=== PATIENT | female | born 1980 | race Two or more races ===

== ENCOUNTER → 2016-07-05 | Outpatient (REF) | payer BC ==
[~2016-07-05] MED LIST: ALEV220T26 PO; PEPT262T2 PO; PROTPAK PO
== END ==
LOC: M LAB REF 16:30
PROVIDERS: ATTEND Physician Assistant
DX: N92.6 Irregular menstruation, unspecified (principal)

== ENCOUNTER → 2016-07-06 | Outpatient (CLI) | payer BC ==
--- NOTE | 2016-07-07 03:29 | REP ---
Clinical: Irregular menstrual cycles . Technique: Transabdominal pelvic ultrasound followed by transvaginal examination for better evaluation of the endometrium and adnexa with color Doppler evaluation of the ovaries. Findings: Bladder is unremarkable and measures 7.4 x 4.7 x 3.0 cm . Heterogeneous anteverted uterus measures 5.1 x 4.9 x 5.8 cm. The endometrial complex measures 14.2 mm thickness. No discrete uterine or endometrial abnormalities are appreciated. Incidental note of small Nabothian cysts. Bilateral ovaries are normal vascularity without evidence for torsion. Right ovary measures 7.4 x 3.4 x 5.1 cm and includes 5.2 cm simple cyst ; R I = 0.44 . Left ovary measures 3.1 x 1.8 x 1.8 cm ; R I = 0.46 . No pelvic fluid or adnexal mass lesion . Impression: 1. 5.2 cm simple right ovarian cyst. Consider follow-up examination in 4-6 weeks to evaluate for resolution. Signed by Jairo Costello MD 07/07/2016 03:21 A
== END ==
LOC: M RAD 11:59
PROVIDERS: ATTEND Physician Assistant
DX: R10.32 Left lower quadrant pain (principal); N92.6 Irregular menstruation, unspecified; N83.201 Unspecified ovarian cyst, right side

== ENCOUNTER → 2016-07-26 | Outpatient (CLI) | payer BC ==
[2016-07-26 17:49] LABS: CONTROL LINE HCG INT CTR LINE PRESENT
[2016-07-26 19:03] LABS: LUTEINIZING HORMONE 2.6 mIU/mL
[2016-07-26 19:04] LABS: FOLLICLE STIMULATING HORMONE 8.5 mIU/mL
[2016-07-26 19:06] LABS: T UPTAKE 31 % (30-39); THYROXINE (T4) 7.9 UG/DL (4.5-12.0)
== END ==
LOC: M SMT 13:34
PROVIDERS: ATTEND Advanced Practice Midwife
DX: R30.0 Dysuria (principal); N92.6 Irregular menstruation, unspecified

== ENCOUNTER → 2016-09-15 | Outpatient (REF) | payer BC ==
[~2016-09-15] MED LIST changes: +IBUP-1022 PO; +TRAM50TA2 PO
[2016-09-15 17:04] LABS: CONTROL LINE HCG INT CTR LINE PRESENT
[2016-09-15 17:12] LABS: PERCENT SATURATION 25.5 % (13.2-37.4); TOTAL IRON BINDING CAPACITY 384 UG/DL (250-450)
== END ==
LOC: M LAB REF 16:25
PROVIDERS: ATTEND Internal Medicine
DX: N92.6 Irregular menstruation, unspecified (principal)

== ENCOUNTER → 2016-09-23 | Outpatient (REF) | payer BC | LOC: M LAB REF 17:24 | PROVIDERS: ATTEND Advanced Practice Midwife | DX: N76.0 Acute vaginitis (principal) ==

== ENCOUNTER → 2016-09-26 | Outpatient (CLI) | payer BC ==
[2016-09-26 19:07] LABS: CONTROL LINE HCG INT CTR LINE PRESENT
[2016-09-26 19:14] LABS: BASO % 0.9 % (0.0-1.0); EOS # 0.2 K/mm3 (0.0-0.50); EOS % 2.9 % (0.0-3.0); LARGE UNSTAINED CELL # 0.1 K/mm3 (0.0-0.4); LARGE UNSTAINED CELL % 2.4 % (0.0-4.0); LYMPH # 1.7 K/mm3 (1.5-4.5); LYMPH % 27.2 % (24.0-44.0); MEAN CORPUSCULAR HEMOGLOBIN 29.6 pg (27.0-33.0); MEAN CORPUSCULAR HGB CONC 32.1 g/dl (32.0-36.5); MEAN CORPUSCULAR VOLUME 92.2 fl (80.0-96.0); MONO # 0.4 K/mm3 (0.0-0.8); MONO % 6.4 % (0.0-5.0); NEUTROPHILS # 3.4 K/mm3 (1.8-7.7); NEUTROPHILS % 60.2 % (36.0-66.0); PLATELET COUNT, AUTOMATED 243 k/mm3 (150-450); RED CELL DISTRIBUTION WIDTH 12.9 % (11.5-14.5); WHITE BLOOD COUNT 5.6 K/mm3 (4.0-10.0)
--- NOTE | 2016-09-27 00:44 | REP ---
Clinical: Abnormal uterine bleeding . Technique: Transabdominal pelvic ultrasound followed by transvaginal examination for better evaluation of the endometrium and adnexa with color Doppler evaluation of the ovaries. Findings: Bladder is unremarkable and measures 9.1 x 5.7 x 9.3 cm . Heterogeneous anteverted uterus measures 8.5 x 4.2 x 5.8 cm . The endometrial complex is heterogeneous and measures 16 mm thickness. No discrete uterine or endometrial abnormalities are appreciated. Incidental Nabothian cysts in the lower uterine segment. Bilateral ovaries are normal in vascularity without evidence for torsion. Right ovary measures 9.3 x 5.8 x 6.2 cm and includes 7.8 x 4.7 x 5.6 cm septated cyst ; R I = 0.60 . Left ovary measures 5.1 x 3.7 x 4.1 cm and includes 3.0 x 4.0 x 2.4 cm simple cyst ; R I = 0.51 . No pelvic fluid or adnexal mass lesion . Impression: 1. Heterogeneous uterus with thickened heterogeneous endometrial complex, but no discrete abnormality or lesion is appreciated. 2. Complex septated 7.8 cm right ovarian cyst and 4.0 cm simple left ovarian cyst warrant followup in 4-6 weeks to evaluate for resolution. Signed by Jairo Costello MD 09/27/2016 12:35 A
== END ==
LOC: M SMT 13:09
PROVIDERS: ATTEND Advanced Practice Midwife
DX: N92.6 Irregular menstruation, unspecified (principal); N83.201 Unspecified ovarian cyst, right side; N83.202 Unspecified ovarian cyst, left side

== ENCOUNTER → 2016-09-28 | Outpatient (CLI) | payer BC ==
[2016-09-28 13:40] LABS: HCG, SERUM QUANTITATIVE < 1.0 MIU/ML
[2016-09-30 10:06] LABS: CARCINOEMBRYONIC ANTIGEN 0.5 NG/ML (<2.5)
[2016-09-30 10:33] LABS: CA 125 11.2 U/ML (<30.2)
== END ==
LOC: M SMT 08:21
PROVIDERS: ATTEND Obstetrics & Gynecology
DX: N83.201 Unspecified ovarian cyst, right side (principal); N83.202 Unspecified ovarian cyst, left side

== ENCOUNTER 2016-10-13 18:13 | Emergency (ER) | payer BC ==
[~2016-10-13] VITALS: Ht 154.9 cm; Wt 55.9 kg
[~2016-10-13 18:13] MED LIST changes: -IBUP-1022 PO; -TRAM50TA2 PO
[2016-10-13 19:12] LABS: MEAN CORPUSCULAR HEMOGLOBIN 29.1 pg (27.0-33.0); MEAN CORPUSCULAR HGB CONC 32.1 g/dl (32.0-36.5); MEAN CORPUSCULAR VOLUME 90.5 fl (80.0-96.0); RED CELL DISTRIBUTION WIDTH 12.5 % (11.5-14.5); WHITE BLOOD COUNT 6.6 K/mm3 (4.0-10.0)
[2016-10-13 19:30] LABS: CONTROL LINE HCG INT CTR LINE PRESENT
[2016-10-13 20:01] VITALS: BP 168/79
[2016-10-28] MEDS ORDERED: ALEV220T26 PO (07:39)
== END 2016-10-13 20:02 | disposition home or self-care (01) ==
LOC: M ED 18:13
DX: N92.1 Excessive and frequent menstruation with irregular cycle (principal); R10.2 Pelvic and perineal pain; Z88.6 Allergy status to analgesic agent

== ENCOUNTER → 2016-11-04 | Outpatient (CLI) | payer BC ==
[~2016-11-04] MED LIST changes: +IBUP-1022 PO; +TRAM50TA2 PO
--- NOTE | 2016-11-04 14:31 | REP ---
Pelvic ultrasound including transabdominal, endovaginal and Doppler ultrasound assessment: Comparison is 09/26/2016. The bladder is adequately distended. The uterus is anteverted and normal size measuring 8.2 x 4.3 x 5.7. The endometrium is not thickened measuring 12 mm. There is a heterogeneous echotexture. There is a focal hypoechoic area measuring 1.1 by 0.9 cm of uncertain significance, clot versus endometrial polyp. Right ovary: There is a 7.6 x 5.5 x 5.1 cm complex right ovarian cyst with a septation. This is not significantly changed in size from the prior study. Including this cyst the right ovary is normal size measuring 8.2 x 6.3 x 5.7 cm. There is vascular flow in the right ovary with the Doppler resistive index of the intraparenchymal arteries measuring 0.59. Left ovary: There is a left ovarian 4.0 x 3.4 1.8 cm simple cyst. This has not significantly changed in size. Including this cyst in the left ovary is enlarged measuring 5.4 x 2.7 x 3.9 cm. The left ovary is best visualized on transabdominal imaging and Doppler waveforms could not be performed. However, there is a left ovarian vascular flow with color Doppler assessment. Impression: The patient's large complex right ovarian cyst has not significantly changed in size. The left ovarian simple cyst has not significantly changed in size. On the study today there is a focal hypoechoic zone in the endometrium of uncertain significance, clot versus polyp. Signed by William Gutiérrez MD 11/04/2016 02:23 P
== END ==
LOC: M SMT 12:58
PROVIDERS: ATTEND Obstetrics & Gynecology
DX: N83.202 Unspecified ovarian cyst, left side (principal)

== ENCOUNTER 2016-11-11 08:00 | Day surgery (SDC) | payer BC ==
[~2016-11-11] VITALS: Ht 154.9 cm; Wt 57.2 kg
[~2016-11-11 08:00] MED LIST changes: -IBUP-1022 PO; -TRAM50TA2 PO
[2016-11-11] MEDS ORDERED: LR 1,000 ML IV ONE (08:30)
[2016-11-11] MEDS ORDERED: LR 1,000 ML IV SCH ×4 (08:30→16:00)
[2016-11-11 08:41] LABS: MEAN CORPUSCULAR HEMOGLOBIN 26.3 pg (27.0-33.0); MEAN CORPUSCULAR HGB CONC 31.2 g/dl (32.0-36.5); RED CELL DISTRIBUTION WIDTH 13.4 % (11.5-14.5); WHITE BLOOD COUNT 6.4 K/mm3 (4.0-10.0)
[2016-11-11 08:42] LABS: CONTROL LINE HCG INT CTR LINE PRESENT
[2016-11-11] MEDS ORDERED: ALBUTEROL SULFATE 2.5 MG/0.5 ML INH NEB SOLN As Ordered ONE (09:01)
[2016-11-11] MEDS ORDERED: ALBUTEROL SULFATE 2.5 MG/0.5 ML INH NEB SOLN INH ONE (09:15)
[2016-11-11] MEDS ORDERED: MIDAZOLAM INJ 2 MG/2 ML VIAL (J2250) As Ordered ONE (10:19)
[2016-11-11] MEDS ORDERED: fentaNYL 100 MCG/2 ML INJECTION (J3010) As Ordered ONE ×2 (10:19→11:55)
[2016-11-11] MEDS ORDERED: BUPIVACAINE HCL 0.25% 10 ML VIAL As Ordered ONE ×2 (10:51→12:10)
[2016-11-11] MEDS ORDERED: SILVER NITRATE APPLICATOR As Ordered ONE (10:51)
[2016-11-11] MEDS ORDERED: dexameTHASONE 4 MG/ML 1ML VIAL (J1100) As Ordered ONE (12:29)
[2016-11-11] MEDS ORDERED: KETOROLAC 60 MG/2 ML VIAL (J1885) As Ordered ONE (12:29)
[2016-11-11] MEDS ORDERED: PROPOFOL 200 MG/20 ML VIAL As Ordered ONE (12:29)
[2016-11-11] MEDS ORDERED: ROCURONIUM BROMIDE 50 MG/5 ML VIAL/SYRINGE As Ordered ONE (12:29)
[2016-11-11] MEDS ORDERED: ONDANSETRON 4MG/2ML VIAL (J2405) As Ordered ONE (12:29)
[2016-11-11] MEDS ORDERED: LIDOCAINE 2% INJ 100 MG/5 ML SDV (FOR ANES.) As Ordered ONE (12:29)
[2016-11-11] MEDS ORDERED: HYDROmorphone HCL 2 MG/ML 1ML VIAL (J1170) As Ordered ONE (12:58)
[2016-11-11] MEDS ORDERED: GLYCOPYRROLATE INJ 0.2 MG/ML 2 ML VIAL As Ordered ONE (14:00)
[2016-11-11] MEDS ORDERED: NEOSTIGMINE 1MG/ML 5 ML SYRINGE (J2710) As Ordered ONE (14:00)
[2016-11-11] MEDS ORDERED: ONDANSETRON 4MG/2ML VIAL (J2405) IV PRN ×2 (14:45→16:00)
[2016-11-11] MEDS ORDERED: HYDROmorphone HCL 1 MG/ML SYRINGE (J1170) IV PRN ×2 (14:45→16:00)
[2016-11-11] MEDS ORDERED: fentaNYL 100 MCG/2 ML INJECTION (J3010) IV PRN ×2 (14:45→16:00)
[2016-11-11] MEDS ORDERED: METOCLOPRAMIDE INJ 10MG/2ML VIAL (J2765) As Ordered ONE (15:32)
[2016-11-11] MEDS ORDERED: METOCLOPRAMIDE INJ 10MG/2ML VIAL (J2765) IV PRN (16:00)
[2016-11-11] MEDS ORDERED: IBUP-1022 PO (16:58)
[2016-11-11] MEDS ORDERED: TRAM50TA2 PO (17:00)
[2016-11-11 18:45] VITALS: BP 150/80
--- NOTE | 2016-11-13 10:30 | RO ---
DATE OF PROCEDURE: 11/11/2016 PREOPERATIVE DIAGNOSES: 1. Abnormal uterine bleeding. 2. Chronic pelvic pain. 3. Right and left adnexal masses. POSTOPERATIVE DIAGNOSES: 1. Abnormal uterine bleeding. 2. Chronic pelvic pain. 3. Right and left adnexal masses. 4. Suspected endometrioma on the left side, pathology on the right side to be determined by final pathology. PROCEDURE PERFORMED: 1. Operative hysteroscopy/MyoSure. 2. Laparoscopic right salpingo-oophorectomy. 3. Laparoscopic left ovarian cystectomy. 4. Laparoscopic lysis of adhesions. SURGEON: Dr. Ru Corona. GIS ADMINISTRATOR: Dr. Esperanza Ocasio. ANESTHESIA: General endotracheal. SPECIMENS TO PATHOLOGY: 1. Morcellated endometrial mass. 2. Endometrial curettings. 3. Right ovary and fallopian tube with right adnexal/ovarian mass. 4. Left-sided ovarian cystic wall grossly consistent with endometrioma. ESTIMATED BLOOD LOSS: 15 mL. Fluids replaced 3 liters. DRAINS: Neves catheter 300 mL of urine output. COMPLICATIONS: None. PREOPERATIVE ANTIBIOTICS: None indicated. INTRAOPERATIVE FINDINGS: 7-8 cm right ovarian mass with complex cystic mass c/w preoperative ultrasonography. Laparoscopically, there is no discernible normal ovarian tissue. This mass was freely mobile on the IP ligament. No surrounding adhesive disease was noted. On the left side, the left ovary and fallopian tube were densely adherent to both the uterus and to the surrounding colon. Around the area of the fimbria and fallopian tube/communication with ovary, there was an apparent endometrioma. Given the dense adhesive nature of this cyst, it was incidentally ruptured intraoperatively and the fluid express was consistent with an endometrioma (thick, dark brown) HYSTEROSCOPIC FINDINGS: An intrauterine posterior polypoid mass which was morcellated with the MyoSure device. INDICATION: 36-year-old with longstanding history of chronic pelvic pain, recent sonographic findings suggestive of bilateral adnexal masses right greater than left. The preoperative plan was to remove the large right adnexal mass and if right salpingo-oophorectomy was deemed necessary, then on the left side, in an effort to retain ovarian function, only a cystectomy/drainage of the cyst was going to be performed. This is exactly what was done. See the narrative. The patient also had abnormal uterine bleeding. Preoperatively the decision was made to evaluate the endometrium for any endometrial intracavitary mass which was suggested by the ultrasonography preoperatively. PROCEDURE: The patient was counseled and consented on the risks, benefits, indications and alternatives of the procedure. Informed consent was obtained. She was taken to the operating room with an IV running and placed on the operating table in dorsal supine position. General anesthesia was administered and the airway secured without any difficulty. She was then placed in low lithotomy position. She was prepared and draped in normal sterile fashion. A time-out was performed per protocol. Attention was first turned to the vagina. A Neves catheter was placed under sterile conditions. A sterile speculum was placed with good visualization of the cervix. The anterior lip of the cervix was grasped with a single-tooth tenaculum and downward traction was applied. The cervix was then sequentially dilated with a Yousif dilator up to #16. The MyoSure hysteroscope was placed transcervically into the intrauterine cavity and the polypoid posterior intracavitary mass was identified. The MyoSure device was then placed transcervically into the intrauterine cavity and it was noted to be abutting the polypoid mass and the MyoSure was activated. The entire polypoid mass was removed and after this mass was removed, the MyoSure device was removed. The hysteroscope was removed and sharp curettage was performed throughout the entire intrauterine cavity. Minimal bleeding from the os was noted. The tissue was sent to pathology for permanent section. The ZUMI uterine manipulator was then placed in typical fashion. The single-tooth tenaculum was removed. The sterile speculum was removed and a glove switch was performed. Attention was turned to the abdomen. A stab incision in the umbilicus was placed. The Veress needle was placed through the umbilicus. Intraperitoneal placement was confirmed with ease of flow of normal saline, negative return on aspiration and a positive drop test. Opening pressure was 7 mmHg. The abdomen was insufflated with 2 liters of gas. The Veress needle was removed. 11 mm supraumbilical midline horizontal skin incision was made with the 11 blade and through this incision, an 11 mm XL laparoscopic trocar was placed into the intraperitoneal cavity. Intraperitoneal placement was confirmed. The patient was placed in Trendelenburg. Two additional lower abdominal port sites were placed via 5 mm incisions in the lower abdomen. Each incision approximately 2 cm superior and 2 cm medial to the ASIS. The 5 mm XL laparoscopic trocars were placed through these incisions without any difficulty and under direct laparoscopic visualization. Attention was first turned to the right adnexal mass. The right adnexal mass was mobilized on the IP ligament. The IP ligament was noted to be well away from the right ureter. Using the 5 mm LigaSure device, the right IP ligament was sequentially clamped, coagulated and transected and then the underlying mesosalpinx and broad ligament were sequentially clamped, coagulated and transected. The utero-ovarian ligament was then sequentially clamped, coagulated and transected with the LigaSure device until the entire right adnexal mass was amputated. This was placed in the anterior cul-de-sac. Attention was then turned to the left sided mass. Given the adherence of this ovary and mass to both the uterus and the surrounding bowel, the decision was made to only proceed with initially drainage. A laparoscopic needle was placed into the cystic mass and punctured into the cystic mass and then brown chocolate fluid was drained. However, during this time, once the laparoscopic needle was removed, it was noted that the cystic wall was entirely visible. The [place] graspers were used to peel the endometrioma wall off of what remained of normal ovarian tissue. Once significant majority portion of the cystic wall was mobilized off of the ovary, the LigaSure device was used to sequentially clamp, coagulate and transect the underside of the cystic wall duct amputating the cystic wall. The cystic wall was sent to pathology for permanent section. Minimal bleeding from the cystectomy site was noted. Normal ovarian tissue was still noted and franchise sales representative images were taken and placed in the chart. Normal ovary was noted to be wedged between adhesive disease between the uterus and the bowel/sigmoid colon. Given the dense adhesions, the decision was made to not proceed with any effort at mobilizing this ovary especially since the patient desired to retain her premenopausal status. The cystic wall was removed through the 5 mm cannula and sent to pathology for permanent section. However, the right adnexal mass was too large to remove through any of the ports. Therefore the Pratik extractor system was used. This was placed through the supraumbilical incision. The mass was placed into the Pratik extractor system and brought out of the abdomen in typical fashion. The mass was noted to be removed in its entirety. The cannula was then replaced. The abdomen and pelvis was inspected and noted be completely hemostatic. To ensure hemostasis, Kayla was placed over the surgical sites concentrating on the cystectomy site which was an area of a small amount of oozing/capillary bleeding. Once the Kayla was placed, excellent hemostasis was noted. The right IP ligament and right broad ligament were noted to be completely hemostatic. At this point, decision was made to conclude the procedure. The 11 mm cannula was removed. The Jorge-Roselyn technique was used to close the fascia at the 11 mm incision with #0 Vicryl. Once this was done, the gas was released from the abdomen. The trocars were removed from the abdomen. The skin incisions were closed with #4-0 Monocryl in subcuticular fashion and reinforced with Dermabond. The sponge, lap, needle, instrument counts were correct. Attention was then turned to the vagina. The ZUMI uterine manipulator was removed. The single-tooth tenaculum had already been removed. The tenaculum sites were noted to be hemostatic upon speculum inspection. The Neves catheter was room. All instruments were removed from the vagina. Sponge, lap, needle, instrument counts were correct. The patient tolerated the entire procedure well. She was transferred to the postanesthesia care unit in good and stable condition. LINDSEY
== END 2016-11-11 18:45 | disposition home or self-care (01) ==
LOC: M SDC 08:00
PROVIDERS: ATTEND Obstetrics & Gynecology
DX: N84.0 Polyp of corpus uteri (principal); N83.292 Other ovarian cyst, left side; N83.01 Follicular cyst of right ovary; N83.8 Other noninflammatory disorders of ovary, fallopian tube and broad ligament; N92.5 Other specified irregular menstruation; N73.6 Female pelvic peritoneal adhesions (postinfective); R10.2 Pelvic and perineal pain; F41.9 Anxiety disorder, unspecified; F32.9 Major depressive disorder, single episode, unspecified; M54.5 Low back pain; M54.2 Cervicalgia
CPT/HCPCS: 36415; 49322; 58558; 58661; 84703; 85027; 86850; 86900; 86901; 88304; 88305; 88307; A6024; J1100; J1170; J1885; J2250; J2405; J2710; J2765; J3010

== ENCOUNTER → 2017-04-10 | Outpatient (REF) | payer BC | LOC: M LAB REF 08:48 | DX: I10 Essential (primary) hypertension (principal) ==

== ENCOUNTER → 2017-07-07 | Outpatient (REF) | payer BC ==
[2017-07-07 13:18] LABS: IRON (FE) 62 UG/DL (50-170); PERCENT SATURATION 16.3 % (13.2-45.0); TOTAL IRON BINDING CAPACITY 380 UG/DL (250-450)
== END ==
LOC: M LAB REF 12:09
DX: K62.5 Hemorrhage of anus and rectum (principal)
CPT/HCPCS: 83550

== ENCOUNTER → 2017-11-24 | Outpatient (REF) | payer BC | LOC: M LAB REF 17:09 | DX: R30.0 Dysuria (principal) | CPT/HCPCS: 87086 ==

== ENCOUNTER → 2018-03-09 | Outpatient (REF) | payer BC ==
[~2018-03-09] MED LIST changes: +IBUP-1022 PO; +TRAM50TA2 PO
== END ==
LOC: M LAB REF 16:47
PROVIDERS: ATTEND Advanced Practice Midwife
DX: R30.0 Dysuria (principal)

== ENCOUNTER → 2018-03-15 | Outpatient (CLI) | payer BC ==
--- NOTE | 2018-03-15 17:19 | REP ---
PELVIC ULTRASOUND: Real-time sonographic evaluation of the pelvis performed utilizing transabdominal and endovaginal technique. Comparison made with prior study of 11/04/2016. The bladder measures 3.8 x 2.6 x 4.2 cm. Uterus measures 7.8 x 4.9 x 5.5 cm. Endometrial thickness is 12 mm. The right ovary could not be visualized due to overlying bowel gas. Left ovary is enlarged measuring 6.4 x 3.5 x 5.0 cm. Visualization is limited due to adjacent bowel gas. However, there is a complex septated cyst present of the left ovary measuring 4.3 x 2.9 x 4.0 cm. There appears to be a mural nodule measuring 1.6 x 1.4 x 1.5 cm within the complex cyst. There is no torsion bilaterally duplex Doppler evaluation. Small nabothian cysts are seen in the region of the cervix. IMPRESSION: Right ovary could not be visualized. Left ovary demonstrates a complex septated cyst with a maximum diameter of 4.3 cm. There is also an internal mural nodule within this complex cyst measuring 1.6 cm maximally. Previously on the examination of 11/04/2016, there was a simple appearing cyst of the left ovary with a maximum diameter of 4 cm. Recommend either short term followup or MRI evaluation. Electronically Signed by William Schilling MD 03/22/2018 10:58 P
== END ==
LOC: M RAD 15:59
PROVIDERS: ATTEND Advanced Practice Midwife
DX: R10.2 Pelvic and perineal pain (principal); N83.202 Unspecified ovarian cyst, left side

== ENCOUNTER → 2018-05-02 | Outpatient (REF) | payer BC ==
[2018-05-02 18:58] LABS: FREE T4 0.82 NG/DL (0.76-1.46); THYROID STIMULATING HORMONE 1.14 uIU/ML (0.358-3.740)
[2018-05-04 12:09] LABS: CA 125 10.1 U/ML (<30.2)
== END ==
LOC: M LAB REF 16:52
PROVIDERS: ATTEND Obstetrics & Gynecology
DX: N93.9 Abnormal uterine and vaginal bleeding, unspecified (principal); N83.299 Other ovarian cyst, unspecified side

== ENCOUNTER → 2018-07-14 | Outpatient (CLI) | payer BC ==
[2018-07-14 10:53] LABS: BASO % 0.7 % (0.0-1.0); EOS # 0.1 10^3/uL (0.0-0.50); EOS % 1.7 % (0.0-3.0); HEMATOCRIT 40.9 % (36.0-47.0); HEMOGLOBIN 13.1 g/dl (12.0-15.5); LYMPH % 36.7 % (24.0-44.0); MEAN CORPUSCULAR HEMOGLOBIN 27.8 pg (27.0-33.0); MEAN CORPUSCULAR VOLUME 86.7 fl (80.0-96.0); MONO # 0.6 10^3/uL (0.0-0.8); MONO % 10.2 % (0.0-5.0); NEUTROPHILS # 2.7 10^3/uL (1.8-7.7); NEUTROPHILS % 50.5 % (36.0-66.0); PLATELET COUNT, AUTOMATED 249 10^3/uL (150-450); RED BLOOD COUNT 4.72 10^6/uL (4.00-5.40); WHITE BLOOD COUNT 5.4 10^3/uL (4.0-10.0)
[2018-07-14 11:14] LABS: HEMOGLOBIN A1c 4.9 %
[2018-07-14 11:33] LABS: ALT/SGPT 15 U/L (12-78); BILIRUBIN,TOTAL 0.6 MG/DL (0.2-1.0); BLOOD UREA NITROGEN 13 MG/DL (7-18); CALCIUM LEVEL 8.8 MG/DL (8.5-10.1); CARBON DIOXIDE LEVEL 26 MEQ/L (21-32); CHLORIDE LEVEL 107 MEQ/L (98-107); CHOLESTEROL LEVEL 200 MG/DL (<200); CHOLESTEROL RISK RATIO 3.773 (<5); CREATININE FOR GFR 0.65 MG/DL (0.55-1.30); FREE T4 0.89 NG/DL (0.76-1.46); GLOMERULAR FILTRATION RATE > 60.0 (>60); GLUCOSE, FASTING 83 MG/DL (70-100); HDL CHOLESTEROL 53 MG/DL (>40); LDL CHOLESTEROL 120 MG/DL (<100); NON-HDL-C 147 MG/DL; POTASSIUM SERUM 4.1 MEQ/L (3.5-5.1); SODIUM LEVEL 140 MEQ/L (136-145); THYROID STIMULATING HORMONE 0.799 uIU/ML (0.358-3.740); TOTAL PROTEIN 6.8 GM/DL (6.4-8.2); TRIGLYCERIDES LEVEL 136 MG/DL (<150)
== END ==
LOC: M LAB 09:49
PROVIDERS: ATTEND Physician Assistant
DX: I10 Essential (primary) hypertension (principal)

== ENCOUNTER → 2018-10-05 | Outpatient (CLI) | payer BC ==
[~2018-10-05] MED LIST changes: +ANUS25SU PR; +CIPR-249 PO; +COLA100C5 PO; +FLAG500T PO; +MIRA3350 PO; +PEPC1TAB5 PO; +VALS80TA
[2018-10-05 17:49] LABS: BASO % 0.4 % (0.0-1.0); EOS # 0.2 10^3/uL (0.0-0.50); EOS % 2.3 % (0.0-3.0); HEMATOCRIT 39.5 % (36.0-47.0); HEMOGLOBIN 12.6 g/dl (12.0-15.5); LYMPH # 1.8 10^3/uL (1.5-4.5); LYMPH % 23.6 % (24.0-44.0); MEAN CORPUSCULAR HEMOGLOBIN 29.4 pg (27.0-33.0); MEAN CORPUSCULAR HGB CONC 31.9 g/dl (32.0-36.5); MEAN CORPUSCULAR VOLUME 92.3 fl (80.0-96.0); MONO # 0.7 10^3/uL (0.0-0.8); MONO % 9.6 % (0.0-5.0); NEUTROPHILS # 4.7 10^3/uL (1.8-7.7); NEUTROPHILS % 63.7 % (36.0-66.0); PLATELET COUNT, AUTOMATED 245 10^3/uL (150-450); RED BLOOD COUNT 4.28 10^6/uL (4.00-5.40); WHITE BLOOD COUNT 7.4 10^3/uL (4.0-10.0)
[2018-10-05 18:22] LABS: HCG, SERUM QUALITATIVE NEGATIVE (NEGATIVE)
[2018-10-05 18:34] LABS: ALBUMIN 3.9 GM/DL (3.2-5.2); ALT/SGPT 18 U/L (12-78); BILIRUBIN,TOTAL 0.3 MG/DL (0.2-1.0); BLOOD UREA NITROGEN 10 MG/DL (7-18); CALCIUM LEVEL 9.5 MG/DL (8.5-10.1); CARBON DIOXIDE LEVEL 30 MEQ/L (21-32); CHLORIDE LEVEL 105 MEQ/L (98-107); CREATININE FOR GFR 0.78 MG/DL (0.55-1.30); GLOMERULAR FILTRATION RATE > 60.0 (>60); GLUCOSE, FASTING 85 MG/DL (70-100); SODIUM LEVEL 141 MEQ/L (136-145); TOTAL PROTEIN 6.9 GM/DL (6.4-8.2)
[2018-10-05 18:43] LABS: LIPASE 118 U/L (73-393)
== END ==
LOC: M SMT 11:08
PROVIDERS: ATTEND Physician Assistant
DX: R10.30 Lower abdominal pain, unspecified (principal)

== ENCOUNTER 2018-10-08 12:10 | Emergency (ER) | payer BC ==
[~2018-10-08] VITALS: Ht 154.9 cm; Wt 59.4 kg
[~2018-10-08 12:10] MED LIST changes: -ANUS25SU PR; -CIPR-249 PO; -COLA100C5 PO; -FLAG500T PO; -MIRA3350 PO; -PEPC1TAB5 PO; -VALS80TA
[2018-10-08] MEDS ORDERED: FLAG500T PO (12:18)
[2018-10-08] MEDS ORDERED: VALS80TA (12:18)
[2018-10-08] MEDS ORDERED: CIPR-249 PO (12:18)
[2018-10-08 12:43] LABS: BASO % 0.4 % (0.0-1.0); EOS # 0.1 10^3/uL (0.0-0.50); EOS % 0.7 % (0.0-3.0); HEMATOCRIT 42.5 % (36.0-47.0); HEMOGLOBIN 13.4 g/dl (12.0-15.5); LYMPH % 21.6 % (24.0-44.0); MEAN CORPUSCULAR HGB CONC 31.5 g/dl (32.0-36.5); MEAN CORPUSCULAR VOLUME 88.9 fl (80.0-96.0); MONO # 0.7 10^3/uL (0.0-0.8); MONO % 7.9 % (0.0-5.0); NEUTROPHILS # 6.3 10^3/uL (1.8-7.7); NEUTROPHILS % 68.6 % (36.0-66.0); PLATELET COUNT, AUTOMATED 269 10^3/uL (150-450); RED BLOOD COUNT 4.78 10^6/uL (4.00-5.40); WHITE BLOOD COUNT 9.1 10^3/uL (4.0-10.0)
[2018-10-08 13:04] LABS: ALBUMIN 4.3 GM/DL (3.2-5.2); ALT/SGPT 18 U/L (12-78); BILIRUBIN,DIRECT 0.1 MG/DL (0.0-0.2); BILIRUBIN,TOTAL 0.5 MG/DL (0.2-1.0); BLOOD UREA NITROGEN 11 MG/DL (7-18); CALCIUM LEVEL 9.7 MG/DL (8.5-10.1); CARBON DIOXIDE LEVEL 29 MEQ/L (21-32); CHLORIDE LEVEL 104 MEQ/L (98-107); CREATININE FOR GFR 0.76 MG/DL (0.55-1.30); GLOMERULAR FILTRATION RATE > 60.0 (>60); GLUCOSE, FASTING 107 MG/DL (70-100); LIPASE 108 U/L (73-393); POTASSIUM SERUM 3.8 MEQ/L (3.5-5.1); SODIUM LEVEL 139 MEQ/L (136-145); TOTAL PROTEIN 7.9 GM/DL (6.4-8.2)
[2018-10-08] MEDS ORDERED: NS 1,000 ML IV ONE (16:45)
[2018-10-08] MEDS ORDERED: PANTOPRAZOLE 40MG TAB (PROTONIX) PO ONE (16:45)
[2018-10-08 17:05] LABS: HCG, SERUM QUALITATIVE NEGATIVE (NEGATIVE)
[2018-10-08] MEDS ORDERED: ISOVUE-370 76% 100ML VIAL (Q9967) As Ordered ONE (17:17)
[2018-10-08 17:35] LABS: C REACTIVE PROTEIN QUANTITATIV < 0.30 MG/DL (0.00-0.30)
--- NOTE | 2018-10-08 17:44 | REPVR ---
EXAM: CT Abdomen and Pelvis With Contrast EXAM DATE/TIME: 10/08/2018 5:25 PM CLINICAL HISTORY: 38 years old, female; Abdominal pain; Additional info: Abd pain, rectal bleeding TECHNIQUE: Imaging protocol: Axial computed tomography images of the abdomen and pelvis with intravenous contrast. Coronal and sagittal reformatted images were created and reviewed. Radiation optimization: All CT scans at this facility use at least one of these dose optimization techniques: automated exposure control; mA and/or kV adjustment per patient size (includes targeted exams where dose is matched to clinical indication); or iterative reconstruction. Contrast material: ISOVUE 370; Contrast volume: 100 ml; Contrast route: IV; COMPARISON: US PELVIC NON-OB COMPLETE 03/15/2018 4:07 PM FINDINGS: Liver: Diffuse hepatic steatosis. Gallbladder and bile ducts: No radiodense gallstones. No biliary ductal dilatation. Pancreas: Unremarkable. Spleen: Unremarkable. Adrenals: Unremarkable. Kidneys and ureters: No mass. No radiodense calculi. No hydronephrosis. Stomach and bowel: Moderate amount of retained stool in the colon. No obstruction. No bowel wall thickening. No pneumatosis. Appendix: Normal. Intraperitoneal space: Trace nonspecific free pelvic fluid, likely physiologic. No organized fluid collection. No free air. Vasculature: Unremarkable. No aneurysm. Lymph nodes: No pathologically enlarged lymph nodes. Bladder: Unremarkable. Reproductive: Approximately 5.5 x 4.5 cm complex left adnexal cystic lesion. Bones/joints: No acute osseous abnormality. Soft tissues: Small, fat-containing umbilical hernia. IMPRESSION: 1. Approximately 5.5 x 4.5 cm complex left adnexal cystic lesion. If clinically indicated, pelvic ultrasound may be obtained for further evaluation. 2. Additional findings, as above. Electronically signed by: Darian Moon On 10/08/2018 17:43:53 PM
[2018-10-08] MEDS ORDERED: ANUS25SU PR (18:05)
[2018-10-08] MEDS ORDERED: MIRA3350 PO (18:05)
[2018-10-08] MEDS ORDERED: COLA100C5 PO (18:05)
[2018-10-08] MEDS ORDERED: PEPC1TAB5 PO (18:05)
[2018-10-08 18:06] LABS: ERYTHROCYTE SEDIMENTATION RATE 8 mm/hr (0-20)
[2018-10-08 18:18] VITALS: BP 116/69
--- NOTE | 2018-10-09 12:21 | ED PDOC ---
Post-Departure Follow-Up dr monk faxed formal report of ct abd/p for fu Erica Bella MD Oct 09, 2018 12:21
== END 2018-10-08 18:32 | disposition home or self-care (01) ==
LOC: M ED 12:10
DX: K92.1 Melena (principal); R10.13 Epigastric pain; N83.292 Other ovarian cyst, left side; K59.00 Constipation, unspecified; I10 Essential (primary) hypertension; Z79.899 Other long term (current) drug therapy; Z88.6 Allergy status to analgesic agent
CPT/HCPCS: 74177; 80048; 80076; 83690; 84703; 85025; 85652; 86140; 86850; 86900; 86901; 96360; 99283; Q9967

== ENCOUNTER → 2019-01-25 | Outpatient (CLI) | payer BC ==
[~2019-01-25] MED LIST changes: +ANUS25SU PR; +CIPR-249 PO; +COLA100C5 PO; +FLAG500T PO; +MIRA3350 PO; +PEPC1TAB5 PO; +VALS80TA
--- NOTE | 2019-01-25 18:35 | REP ---
Left ankle four views: Mineralization and joint spaces are normal. There is no fracture or dislocation. No calcifications or foreign bodies. There is a tiny calcaneal plantar spur. Impression: Essentially negative left ankle. Electronically Signed by William Gutiérrez MD 01/25/2019 06:26 P
--- NOTE | 2019-01-25 18:36 | REP ---
Left foot four views: Mineralization and joint spaces are normal. There is no fracture or dislocation. No calcifications or foreign bodies. There is a tiny plantar are calcaneal spur. Impression: Essentially negative left foot. Electronically Signed by William Gutiérrez MD 01/25/2019 06:27 P
[2019-01-25 20:32] LABS: BASO # 0.1 10^3/uL (0.0-0.2); BASO % 0.6 % (0.0-1.0); EOS # 0.1 10^3/uL (0.0-0.5); EOS % 1.2 % (0.0-3.0); HEMATOCRIT 39.4 % (36.0-47.0); LYMPH # 2.5 10^3/uL (1.5-5.0); LYMPH % 26.6 % (24.0-44.0); MEAN CORPUSCULAR HGB CONC 30.5 g/dl (32.0-36.5); MEAN CORPUSCULAR VOLUME 92.1 fl (80.0-96.0); MONO # 0.9 10^3/uL (0.0-0.8); MONO % 9.4 % (0.0-5.0); NEUTROPHILS # 5.8 10^3/uL (1.5-8.5); NEUTROPHILS % 61.8 % (36.0-66.0); PLATELET COUNT, AUTOMATED 269 10^3/uL (150-450); RED BLOOD COUNT 4.28 10^6/uL (4.00-5.40); WHITE BLOOD COUNT 9.5 10^3/uL (4.0-10.0)
[2019-01-25 20:52] LABS: ALBUMIN 3.7 GM/DL (3.2-5.2); ALT/SGPT 19 U/L (12-78); BILIRUBIN,TOTAL 0.3 MG/DL (0.2-1.0); BLOOD UREA NITROGEN 16 MG/DL (7-18); CALCIUM LEVEL 8.8 MG/DL (8.5-10.1); CARBON DIOXIDE LEVEL 28 MEQ/L (21-32); CHLORIDE LEVEL 109 MEQ/L (98-107); CREATININE FOR GFR 0.84 MG/DL (0.55-1.30); GLOMERULAR FILTRATION RATE > 60.0 (>60); GLUCOSE, FASTING 93 MG/DL (70-100); POTASSIUM SERUM 4.3 MEQ/L (3.5-5.1); SODIUM LEVEL 143 MEQ/L (136-145); TOTAL PROTEIN 6.6 GM/DL (6.4-8.2); URIC ACID 5.4 MG/DL (2.6-6.0)
== END ==
LOC: M WUC 17:42
PROVIDERS: ATTEND Physician Assistant
DX: M25.572 Pain in left ankle and joints of left foot (principal)

== ENCOUNTER → 2019-04-12 | Outpatient (CLI) | payer BC ==
[2019-04-12 10:20] LABS: HEMOGLOBIN A1c 4.9 %
[2019-04-12 10:29] LABS: ALBUMIN 4.1 GM/DL (3.2-5.2); ALT/SGPT 13 U/L (12-78); BILIRUBIN,TOTAL 0.4 MG/DL (0.2-1.0); BLOOD UREA NITROGEN 12 MG/DL (7-18); CALCIUM LEVEL 9.2 MG/DL (8.5-10.1); CARBON DIOXIDE LEVEL 26 MEQ/L (21-32); CHLORIDE LEVEL 107 MEQ/L (98-107); CREATININE FOR GFR 0.65 MG/DL (0.55-1.30); FREE T4 0.93 NG/DL (0.76-1.46); GLOMERULAR FILTRATION RATE > 60.0 (>60); GLUCOSE, FASTING 84 MG/DL (70-100); SODIUM LEVEL 141 MEQ/L (136-145); TOTAL PROTEIN 7.6 GM/DL (6.4-8.2)
== END ==
LOC: M LAB 09:24
PROVIDERS: ATTEND Family Medicine
DX: R63.5 Abnormal weight gain (principal)

== ENCOUNTER → 2020-06-01 | Outpatient (CLI) | payer BC ==
--- NOTE | 2020-06-01 22:34 | REP ---
INDICATION: N83.202 L OVARIAN CYST COMPARISON: None. TECHNIQUE: Transabdominal pelvic ultrasound followed by transvaginal examination for better evaluation of the endometrium and adnexa with color Doppler evaluation of the ovaries. FINDINGS: Bladder is unremarkable and measures 7.4 x 8.0 x 2.3 cm. Heterogeneous retroverted uterus measures 7.2 x 4.5 x 5.1 cm. The endometrial complex measures 10 mm thickness. 8 mm endometrial polyp is suspected. Right ovary is surgically absent. Left ovary measures 5.2 x 2.5 x 4.3 cm (RI 0.48) and includes 3.9 x 2.2 x 2.5 cm simple cyst and 1.4 x 1.5 x 1.5 cm simple cyst. IMPRESSION: Suspected 8 mm polyp in the endometrium. Two left ovarian cysts possibly physiologic. Consider re-evaluation in 4-6 weeks to evaluate for resolution. <Electronically signed by Jairo Costello > 06/01/20 [id number]
== END ==
LOC: M WHC 14:13
PROVIDERS: ATTEND Obstetrics & Gynecology
DX: N83.202 Unspecified ovarian cyst, left side (principal)

== ENCOUNTER → 2020-06-05 | Outpatient (CLI) | payer BC ==
[~2020-06-05] MED LIST changes: +ISOVUE-370 76% 100ML VIAL As Ordered ONE
--- NOTE | 2020-06-05 16:49 | REP ---
INDICATION: INFERTILITY/ DOCTOR TO WRITE ORDER. COMPARISON: None. TECHNIQUE: The endometrium was cannulated and contrast was injected by the attending drafter geological Dr. Corona. Fluoroscopic spot films were acquired by Callie Lopez [facility], under the direct supervision of Dr. Doll. Images reviewed prior with Dr. Doll to dictation. FINDINGS: Fluoroscopy spot radiographs document filling of a normal endometrial cavity. The patient is status post right partial salpingectomy and oophorectomy. There is partial filling on the right with out any documented spill. The left side demonstrates hydrosalpinx, without any documented spill. IMPRESSION: Bilateral tubal occlusion with left sided hydrosalpinx. 0.9 minutes of fluoroscopy time was utilized for this procedure. Some fluoroscopic images are performed with last image hold technology. These images require no additional radiation. <Electronically signed by Callie Lopez > 06/05/20 [id number] <Electronically signed by Jakob Doll > 06/05/20 2010
== END ==
LOC: M RADPRO 12:10
PROVIDERS: ATTEND Obstetrics & Gynecology
DX: N97.9 Female infertility, unspecified (principal); Z90.721 Acquired absence of ovaries, unilateral; N83.202 Unspecified ovarian cyst, left side
CPT/HCPCS: 58340; 74740; Q9967

== ENCOUNTER → 2020-09-25 | Outpatient (REF) | payer BC ==
[~2020-09-25] MED LIST changes: -ISOVUE-370 76% 100ML VIAL As Ordered ONE
[2020-09-25 13:18] LABS: APPEARANCE, URINE CLEAR (CLEAR); BACTERIA, URINE AUTO NEGATIVE (NEGATIVE); BILIRUBIN, URINE AUTO NEGATIVE (NEGATIVE); BLOOD, URINE BLOOD NEGATIVE (NEGATIVE); COLOR, URINE YELLOW (YELLOW); GLUCOSE, URINE (UA) AUTO NEGATIVE (NEGATIVE); KETONE, URINE AUTO NEGATIVE (NEGATIVE); LEUKOCYTE ESTERASE, URINE AUTO NEGATIVE (NEGATIVE); MUCUS, URINE SMALL (NEGATIVE); NITRITE, URINE AUTO NEGATIVE (NEGATIVE); PROTEIN, URINE AUTO NEGATIVE (NEGATIVE); RBC, URINE AUTO 0 /HPF (0-3); SPECIFIC GRAVITY URINE AUTO 1.014 (1.002-1.035); SQUAMOUS EPITHELIAL CELL UR AU 2 /HPF (0-6); UROBILINOGEN, URINE AUTO 0.2 mg/dL (0.0-2.0); WBC, URINE AUTO 0 /HPF (0-3)
== END ==
LOC: M SMT 12:54
PROVIDERS: ATTEND Nurse Practitioner Family
DX: R35.0 Frequency of micturition (principal)

== ENCOUNTER → 2021-02-26 | Outpatient (CLI) | payer BC ==
[2021-02-26 13:30] LABS: BASO % 0.4 % (0.0-1.0); EOS # 0.1 10^3/uL (0.0-0.5); EOS % 1.6 % (0.0-3.0); HEMATOCRIT 40.1 % (36.0-47.0); HEMOGLOBIN 12.6 g/dl (12.0-15.5); LYMPH # 1.8 10^3/uL (1.5-5.0); LYMPH % 26.9 % (24.0-44.0); MEAN CORPUSCULAR HEMOGLOBIN 28.1 pg (27.0-33.0); MEAN CORPUSCULAR HGB CONC 31.4 g/dl (32.0-36.5); MEAN CORPUSCULAR VOLUME 89.5 fl (80.0-96.0); MONO # 0.5 10^3/uL (0.0-0.8); MONO % 7.6 % (2.0-8.0); NEUTROPHILS # 4.3 10^3/uL (1.5-8.5); NEUTROPHILS % 63.1 % (36.0-66.0); PLATELET COUNT, AUTOMATED 295 10^3/uL (150-450); RED BLOOD COUNT 4.48 10^6/uL (4.00-5.40); WHITE BLOOD COUNT 6.8 10^3/uL (4.0-10.0)
[2021-02-26 13:58] LABS: ALBUMIN 3.6 GM/DL (3.2-5.2); ALT/SGPT 13 U/L (12-78); BILIRUBIN,TOTAL 0.4 MG/DL (0.2-1.0); BLOOD UREA NITROGEN 12 MG/DL (7-18); CALCIUM LEVEL 9.4 MG/DL (8.5-10.1); CARBON DIOXIDE LEVEL 29 MEQ/L (21-32); CHLORIDE LEVEL 105 MEQ/L (98-107); CHOLESTEROL LEVEL 220 MG/DL (<200); CHOLESTEROL RISK RATIO 4.489 (<5); CREATININE FOR GFR 0.59 MG/DL (0.55-1.30); GLOMERULAR FILTRATION RATE > 60.0 (>58); GLUCOSE, FASTING 90 MG/DL (70-100); HDL CHOLESTEROL 49 MG/DL (>40); LDL CHOLESTEROL 140 MG/DL (<100); NON-HDL-C 171 MG/DL; SODIUM LEVEL 141 MEQ/L (136-145); TOTAL PROTEIN 6.8 GM/DL (6.4-8.2); TRIGLYCERIDES LEVEL 154 MG/DL (<150)
[2021-02-26 14:05] LABS: TOTAL 25(OH) VITAMIN D 26.3 NG/ML (30.0-100.0)
== END ==
LOC: M PLALAB 09:34
PROVIDERS: ATTEND Physician Assistant
DX: Z13.220 Encounter for screening for lipoid disorders (principal)

== ENCOUNTER → 2021-04-26 | Outpatient (REF) | payer OTHER, BC | LOC: M SFHCWAGY 12:55 | PROVIDERS: ATTEND Obstetrics & Gynecology | DX: Z12.4 Encounter for screening for malignant neoplasm of cervix (principal) ==

== ENCOUNTER → 2021-05-03 | Outpatient (CLI) | payer OTHER | LOC: M WHC 07:32 | PROVIDERS: ATTEND Obstetrics & Gynecology | DX: N80.1 Endometriosis of ovary (principal) ==

== ENCOUNTER → 2021-06-14 | Outpatient (CLI) | payer BC, OTHER | LOC: M WHC 11:52 | PROVIDERS: ATTEND Obstetrics & Gynecology | DX: Z12.31 Encounter for screening mammogram for malignant neoplasm of breast (principal) ==

== ENCOUNTER → 2021-07-10 | Outpatient (CLI) | payer OTHER ==
[~2021-07-10] MED LIST changes: +ATOR1TAB19 PO; +ERGO500029 PO; +ESTA0.25 PO; +FISH1000 PO; +PHEN-239 PO; +POTA99CA2 PO; -VALS80TA; +VALS80TA PO
[2021-07-10 14:37] LABS: BLOOD UREA NITROGEN 10 MG/DL (7-18); CALCIUM LEVEL 10.2 MG/DL (8.5-10.1); CARBON DIOXIDE LEVEL 33 MEQ/L (21-32); CHLORIDE LEVEL 104 MEQ/L (98-107); CREATININE FOR GFR 0.66 MG/DL (0.55-1.30); GLOMERULAR FILTRATION RATE > 60.0 (>58); GLUCOSE, FASTING 91 MG/DL (70-100); SODIUM LEVEL 139 MEQ/L (136-145)
== END ==
LOC: M EKG 13:20
PROVIDERS: ATTEND Anesthesiology
DX: Z01.818 Encounter for other preprocedural examination (principal)

== ENCOUNTER → 2021-07-16 | Outpatient (CLI) | payer OTHER | LOC: M LABSMTC 10:13 | PROVIDERS: ATTEND Anesthesiology | DX: Z01.812 Encounter for preprocedural laboratory examination (principal); Z20.822 Contact with and (suspected) exposure to COVID-19 ==

== ENCOUNTER 2021-07-21 12:21 | Day surgery (SDC) | payer OTHER ==
[~2021-07-21] VITALS: Ht 157.5 cm; Wt 61.1 kg
[~2021-07-21 12:21] MED LIST changes: +LR 1,000 ML IV ONE
[2021-07-21 13:10] LABS: HEMATOCRIT 41.6 % (36.0-47.0); HEMOGLOBIN 13.3 g/dl (12.0-15.5); MEAN CORPUSCULAR HEMOGLOBIN 29.4 pg (27.0-33.0); PLATELET COUNT, AUTOMATED 241 10^3/uL (150-450); RED BLOOD COUNT 4.52 10^6/uL (4.00-5.40); WHITE BLOOD COUNT 6.9 10^3/uL (4.0-10.0)
[2021-07-21] MEDS ORDERED: SCOPOLAMINE 1MG TRANSDERMAL PATCH TOP ONE (13:30)
[2021-07-21] MEDS ORDERED: propofoL 200 MG/20 ML VIAL As Ordered ONE (13:45)
[2021-07-21] MEDS ORDERED: dexameTHASONE 4 MG/ML 1ML VIAL (J1100 PER 1MG) As Ordered ONE (13:45)
[2021-07-21] MEDS ORDERED: ONDANSETRON 4MG/2ML VIAL As Ordered ONE (13:45)
[2021-07-21] MEDS ORDERED: MIDAZOLAM INJ 2MG/2ML VIAL (J2250 PER 1MG) As Ordered ONE (13:45)
[2021-07-21] MEDS ORDERED: LIDOCAINE 2% 100MG/5ML SDV (FOR ANES.) As Ordered ONE (13:45)
[2021-07-21] MEDS ORDERED: fentaNYL 100 MCG/2 ML INJECTION As Ordered ONE (13:45)
[2021-07-21] MEDS ORDERED: SILVER NITRATE APPLICATOR (1 = QTY 10) As Ordered ONE (14:34)
[2021-07-21] MEDS ORDERED: KETOROLAC 60MG 2ML VIAL As Ordered ONE (14:59)
[2021-07-21] MEDS ORDERED: ONDANSETRON 4MG/2ML VIAL IV PRN (16:05)
[2021-07-21] MEDS ORDERED: fentaNYL 100 MCG/2 ML INJECTION IV PRN (16:05)
[2021-07-21] MEDS ORDERED: HYDROMORPHONE HCL 0.5 MG/ 0.5 ML SYRINGE (J1170 PER 1) IV PRN (16:05)
[2021-07-21] MEDS ORDERED: oxyCODONE 5MG TAB PO PRN (16:05)
[2021-07-21] MEDS ORDERED: LR 1,000 ML IV SCH ×2 (16:05)
[2021-07-21 17:40] VITALS: BP 133/98
== END 2021-07-21 17:45 | disposition home or self-care (01) ==
LOC: M SDC 12:21
PROVIDERS: ATTEND Obstetrics & Gynecology
DX: N84.0 Polyp of corpus uteri (principal); I10 Essential (primary) hypertension; E78.5 Hyperlipidemia, unspecified; K57.92 Diverticulitis of intestine, part unspecified, without perforation or abscess without bleeding; K21.9 Gastro-esophageal reflux disease without esophagitis; Z88.8 Allergy status to other drugs, medicaments and biological substances; Z79.899 Other long term (current) drug therapy; G43.909 Migraine, unspecified, not intractable, without status migrainosus; F41.9 Anxiety disorder, unspecified; F32.9 Major depressive disorder, single episode, unspecified
CPT/HCPCS: 36415; 58558; 81025; 85027; 86850; 86900; 86901; 88305; J1100; J1885; J2250; J2405; J3010

== ENCOUNTER → 2021-09-28 | Outpatient (CLI) | payer OTHER ==
[~2021-09-28] MED LIST changes: -LR 1,000 ML IV ONE
[2021-09-28 14:20] LABS: ALBUMIN 3.9 GM/DL (3.2-5.2); ALT/SGPT 17 U/L (12-78); BILIRUBIN,TOTAL 0.5 MG/DL (0.2-1.0); BLOOD UREA NITROGEN 10 MG/DL (7-18); CALCIUM LEVEL 9.7 MG/DL (8.5-10.1); CARBON DIOXIDE LEVEL 30 MEQ/L (21-32); CHLORIDE LEVEL 107 MEQ/L (98-107); CHOLESTEROL LEVEL 161 MG/DL (<200); CHOLESTEROL RISK RATIO 3.037 (<5); CREATININE FOR GFR 0.63 MG/DL (0.55-1.30); GLOMERULAR FILTRATION RATE > 60.0 (>58); GLUCOSE, FASTING 88 MG/DL (70-100); HDL CHOLESTEROL 53 MG/DL (>40); LDL CHOLESTEROL 86 MG/DL (<100); NON-HDL-C 108 MG/DL; POTASSIUM SERUM 4.4 MEQ/L (3.5-5.1); SODIUM LEVEL 140 MEQ/L (136-145); TOTAL PROTEIN 6.9 GM/DL (6.4-8.2); TRIGLYCERIDES LEVEL 111 MG/DL (<150)
[2021-09-28 14:45] LABS: TOTAL 25(OH) VITAMIN D 24.4 NG/ML (30.0-100.0)
== END ==
LOC: M PLALAB 08:42
PROVIDERS: ATTEND Physician Assistant
DX: E78.2 Mixed hyperlipidemia (principal); E55.9 Vitamin D deficiency, unspecified

== ENCOUNTER → 2021-12-05 | Outpatient (REF) | LOC: M LABSMTC 11:25 | PROVIDERS: ATTEND Family Medicine | DX: Z20.828 Contact with and (suspected) exposure to other viral communicable diseases (principal); Z11.59 Encounter for screening for other viral diseases ==

== ENCOUNTER → 2021-12-24 | Outpatient (REF) | LOC: M EMP 07:55 | PROVIDERS: ATTEND Family Medicine | DX: Z20.822 Contact with and (suspected) exposure to COVID-19 (principal); Z11.52 Encounter for screening for COVID-19 ==

== ENCOUNTER → 2022-02-25 | Outpatient (REF) | LOC: M EMP 09:18 | PROVIDERS: ATTEND Family Medicine | DX: Z20.828 Contact with and (suspected) exposure to other viral communicable diseases (principal); Z11.59 Encounter for screening for other viral diseases ==

== ENCOUNTER → 2022-04-11 | Outpatient (CLI) | payer OTHER ==
[2022-04-11 18:16] LABS: ALBUMIN 4.2 G/DL (3.2-5.2); ALKALINE PHOSPHATASE 73 U/L (46-116); ALT/SGPT 15 U/L (7.0-40); AST/SGOT 19 U/L (<34); BILIRUBIN,DIRECT 0.1 MG/DL (<0.4); BILIRUBIN,TOTAL 0.4 MG/DL (0.3-1.2); HEPATITIS B SURFACE ANTIBODY NEGATIVE (POSITIVE)
[2022-04-11 18:49] LABS: HEPATITIS B CORE ANTIBODY IGM NEGATIVE (NEGATIVE)
[2022-04-11 18:55] LABS: HEPATITIS B SURFACE ANTIGEN POSITIVE (NEGATIVE)
== END ==
LOC: M PLALAB 16:34
PROVIDERS: ATTEND Physician Assistant
DX: B19.9 Unspecified viral hepatitis without hepatic coma (principal)

== ENCOUNTER → 2022-04-29 | Outpatient (CLI) | payer OTHER | LOC: M WHC 14:16 | PROVIDERS: ATTEND Physician Assistant | DX: N83.201 Unspecified ovarian cyst, right side (principal) ==

== ENCOUNTER → 2022-05-23 | Outpatient (CLI) | payer OTHER ==
[2022-05-23 13:50] LABS: BASO # 0.1 10^3/uL (0.0-0.2); BASO % 0.9 % (0.0-1.0); EOS # 0.1 10^3/uL (0.0-0.5); LYMPH # 1.6 10^3/uL (1.5-5.0); LYMPH % 28.2 % (24.0-44.0); MEAN CORPUSCULAR HEMOGLOBIN 27.5 pg (27.0-33.0); MEAN CORPUSCULAR HGB CONC 30.8 g/dl (32.0-36.5); MEAN CORPUSCULAR VOLUME 89.4 fl (80.0-96.0); MONO # 0.6 10^3/uL (0.0-0.8); MONO % 11.1 % (2.0-8.0); NEUTROPHILS # 3.2 10^3/uL (1.5-8.5); NEUTROPHILS % 57.4 % (36.0-66.0); PLATELET COUNT, AUTOMATED 266 10^3/uL (150-450); RED BLOOD COUNT 4.36 10^6/uL (4.00-5.40); WHITE BLOOD COUNT 5.5 10^3/uL (4.0-10.0)
[2022-05-23 15:41] LABS: HEPATITIS B SURFACE ANTIBODY NEGATIVE (POSITIVE)
[2022-05-23 16:14] LABS: HEPATITIS C VIRUS ABY INDEX < 0.0 INDEX (<0.8)
== END ==
LOC: M PLALAB 10:03
PROVIDERS: ATTEND Internal Medicine Infectious Disease
DX: B18.1 Chronic viral hepatitis B without delta-agent (principal)

== ENCOUNTER → 2022-08-22 | Outpatient (CLI) | payer OTHER | LOC: M WHC 08:37 | PROVIDERS: ATTEND Physician Assistant | DX: N83.202 Unspecified ovarian cyst, left side (principal) ==

== ENCOUNTER → 2022-09-01 | Outpatient (CLI) | payer OTHER | LOC: M WHC 10:29 | PROVIDERS: ATTEND Physician Assistant | DX: Z12.31 Encounter for screening mammogram for malignant neoplasm of breast (principal) ==

== ENCOUNTER → 2022-09-01 | Outpatient (CLI) | payer OTHER ==
[2022-09-01 13:36] LABS: BASO % 0.5 % (0.0-1.0); EOS # 0.1 10^3/uL (0.0-0.5); EOS % 1.8 % (0.0-3.0); HEMATOCRIT 39.1 % (36.0-47.0); HEMOGLOBIN 12.2 g/dl (12.0-15.5); LYMPH # 1.9 10^3/uL (1.5-5.0); LYMPH % 30.2 % (24.0-44.0); MEAN CORPUSCULAR HEMOGLOBIN 27.9 pg (27.0-33.0); MEAN CORPUSCULAR HGB CONC 31.2 g/dl (32.0-36.5); MEAN CORPUSCULAR VOLUME 89.3 fl (80.0-96.0); MONO # 0.5 10^3/uL (0.0-0.8); MONO % 8.8 % (2.0-8.0); NEUTROPHILS # 3.6 10^3/uL (1.5-8.5); PLATELET COUNT, AUTOMATED 281 10^3/uL (150-450); RED BLOOD COUNT 4.38 10^6/uL (4.00-5.40); WHITE BLOOD COUNT 6.1 10^3/uL (4.0-10.0)
[2022-09-01 13:48] LABS: HEMOGLOBIN A1c 4.8 % (4.0-6.0)
[2022-09-01 14:22] LABS: THYROID STIMULATING HORMONE 0.899 uIU/ML (0.55-4.78); TOTAL 25(OH) VITAMIN D 23.6 NG/ML (20.0-100.0)
[2022-09-01 14:23] LABS: FREE T4 0.87 NG/DL (0.89-1.76)
[2022-09-01 14:27] LABS: ALBUMIN 3.7 G/DL (3.2-5.2); ALKALINE PHOSPHATASE 64 U/L (46-116); ALT/SGPT 10 U/L (7.0-40); AST/SGOT 10 U/L (<34); BILIRUBIN,TOTAL 0.4 MG/DL (0.3-1.2); BLOOD UREA NITROGEN 12 MG/DL (9-23); CALCIUM LEVEL 8.9 MG/DL (8.5-10.1); CARBON DIOXIDE LEVEL 27 MMOL/L (20-31); CHLORIDE LEVEL 106 MMOL/L (98-107); CHOLESTEROL LEVEL 189 MG/DL (<200); CHOLESTEROL RISK RATIO 3.16 (<5); CREATININE FOR GFR 0.64 MG/DL (0.55-1.30); GLOMERULAR FILTRATION RATE > 60.0 (>58); GLUCOSE, FASTING 86 MG/DL (60-100); HDL CHOLESTEROL 59.7 MG/DL (>40); LDL CHOLESTEROL 102.7 MG/DL (<100); NON-HDL-C 129.3 MG/DL; POTASSIUM SERUM 4.4 MMOL/L (3.5-5.1); SODIUM LEVEL 140 MMOL/L (136-145); TOTAL PROTEIN 6.2 G/DL (5.7-8.2); TRIGLYCERIDES LEVEL 133 MG/DL (<150)
== END ==
LOC: M PLALAB 10:33
PROVIDERS: ATTEND Physician Assistant
DX: E78.2 Mixed hyperlipidemia (principal); E55.9 Vitamin D deficiency, unspecified; I10 Essential (primary) hypertension; M50.30 Other cervical disc degeneration, unspecified cervical region

== ENCOUNTER → 2023-05-25 | Outpatient (REF) | LOC: M EMP 07:34 | PROVIDERS: ATTEND Family Medicine | DX: Z01.89 Encounter for other specified special examinations (principal) ==

== ENCOUNTER → 2023-05-25 | Outpatient (REF) | LOC: M EMP 07:33 | PROVIDERS: ATTEND Family Medicine | DX: Z01.89 Encounter for other specified special examinations (principal) ==

== ENCOUNTER → 2023-10-04 | Outpatient (REF) | payer OTHER ==
[2023-10-06 12:27] LABS: HPV APTIMA Not Detected (Not Detected)
== END ==
LOC: M SFHCWAGY 12:51
PROVIDERS: ATTEND Obstetrics & Gynecology
DX: Z12.4 Encounter for screening for malignant neoplasm of cervix (principal)
CPT/HCPCS: 87624; G0123

== ENCOUNTER → 2023-10-04 | Outpatient (CLI) | payer OTHER | LOC: M WHC 09:58 | PROVIDERS: ATTEND Obstetrics & Gynecology | DX: Z12.31 Encounter for screening mammogram for malignant neoplasm of breast (principal) ==

== ENCOUNTER → 2024-10-10 | Outpatient (CLI) | payer OTHER ==
[~2024-10-10] MED LIST changes: -PHEN-239 PO; +PHEN37.511 PO
== END ==
LOC: M WHC 14:01
PROVIDERS: ATTEND Physician Assistant
DX: Z12.31 Encounter for screening mammogram for malignant neoplasm of breast (principal); R92.323 Mammographic fibroglandular density, bilateral breasts

== ENCOUNTER → 2024-12-13 | Outpatient (REF) ==
[~2024-12-13] MED LIST changes: -IBUP-1022 PO; +IBUP600T42 PO
[2024-12-13 08:54] LABS: SOFIA COVID ANTIGEN POSITIVE (NEGATIVE)
== END ==
LOC: M EMP 08:27
PROVIDERS: ATTEND Family Medicine
DX: Z11.52 Encounter for screening for COVID-19 (principal)

== ENCOUNTER → 2025-03-10 | Outpatient (CLI) | payer OTHER ==
[2025-03-10 09:36] LABS: BASO # 0.1 10^3/uL (0.0-0.2); BASO % 0.8 % (0.0-1.0); EOS # 0.2 10^3/uL (0.0-0.5); EOS % 4.0 % (0.0-3.0); LYMPH # 2.0 10^3/uL (1.5-5.0); LYMPH % 33.3 % (24.0-44.0); MONO # 0.5 10^3/uL (0.0-0.8); MONO % 8.3 % (2.0-8.0); NEUTROPHILS # 3.2 10^3/uL (1.5-8.5); NEUTROPHILS % 53.3 % (36.0-66.0); PLATELET COUNT, AUTOMATED 314 10^3/uL (150-450)
[2025-03-10 09:55] LABS: ALT/SGPT 13 U/L (7.0-40); AST/SGOT 17 U/L (<34); CALCIUM LEVEL 9.5 MG/DL (8.5-10.1); CARBON DIOXIDE LEVEL 30 MMOL/L (20-31); CHLORIDE LEVEL 105 MMOL/L (98-107); CREATININE FOR GFR 0.64 MG/DL (0.55-1.30); GLOMERULAR FILTRATION RATE > 90.0 (>58); POTASSIUM SERUM 4.2 MMOL/L (3.5-5.1); SODIUM LEVEL 142 MMOL/L (136-145)
[2025-03-10 09:58] LABS: PROGESTERONE 0.24 NG/ML
== END ==
LOC: M LAB 08:41
PROVIDERS: ATTEND Physician Assistant
DX: Z13.29 Encounter for screening for other suspected endocrine disorder (principal)